=== PATIENT | female | born 1980 | race Caucasian/White ===

== ENCOUNTER → 2016-04-02 | Outpatient (CLI) | payer OTHER ==
[~2016-04-02] MED LIST: LAMICTAL 100MG100 MG PO; PRENATAL MVI
== END ==
LOC: BHSO 09:15
DX: F31.81 Bipolar II disorder (principal)

== ENCOUNTER → 2016-06-20 | Outpatient (CLI) | payer OTHER | LOC: BHSO 08:22 | DX: F31.81 Bipolar II disorder (principal) ==

== ENCOUNTER → 2016-09-13 | Outpatient (CLI) | payer OTHER | LOC: BHSO 08:55 | DX: F31.81 Bipolar II disorder (principal) ==

== ENCOUNTER → 2017-01-09 | Outpatient (CLI) | payer OTHER | LOC: BHSO 10:16 | DX: F31.81 Bipolar II disorder (principal) ==

== ENCOUNTER → 2017-10-20 | Outpatient (CLI) | payer OTHER | LOC: BHSO 10:41 | DX: F31.81 Bipolar II disorder (principal) | CPT/HCPCS: G0463 ==

== ENCOUNTER → 2018-03-17 | Outpatient (CLI) | payer OTHER | LOC: BHSO 09:53 | DX: F31.81 Bipolar II disorder (principal) | CPT/HCPCS: G0463 ==

== ENCOUNTER → 2018-04-30 | Outpatient (CLI) | payer OTHER | LOC: BHSO 09:09 | DX: F31.81 Bipolar II disorder (principal) | CPT/HCPCS: G0463 ==

== ENCOUNTER → 2018-07-09 | Outpatient (CLI) | payer OTHER | LOC: BHSO 09:17 | DX: F31.81 Bipolar II disorder (principal) | CPT/HCPCS: G0463 ==

== ENCOUNTER → 2018-09-08 | Outpatient (CLI) | payer OTHER | LOC: BHSO 08:59 | DX: F31.81 Bipolar II disorder (principal) | CPT/HCPCS: G0463 ==

== ENCOUNTER → 2019-01-06 | Outpatient (CLI) | payer OTHER | LOC: BHSO 08:56 | DX: F31.81 Bipolar II disorder (principal) | CPT/HCPCS: G0463 ==

== ENCOUNTER → 2019-03-09 | Outpatient (CLI) | payer OTHER | LOC: BHSO 08:57 | DX: F31.81 Bipolar II disorder (principal) | CPT/HCPCS: G0463 ==

== ENCOUNTER → 2019-12-08 | Outpatient (CLI) | payer OTHER | LOC: BHSO 12:57 | DX: F31.81 Bipolar II disorder (principal) | CPT/HCPCS: G0463 ==